=== PATIENT | male | born 2000 ===

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

== ENCOUNTER 2019-05-18 20:38 | Emergency (ER) | payer BC ==
[2019-05-18] MEDS ORDERED: SODIUM CHLORIDE 0.9% 1,000 ML IV STA (21:47)
--- NOTE | 2019-05-18 22:17 | ED ---
General Adult HPI - General Chief complaint: Arrhythmia/Palpitations Stated complaint: Palpitations Time Seen by Provider: 05/18/19 21:00 Source: patient, family Mode of arrival: ambulatory Limitations: no limitations - History of Present Illness Initial comments: Patient presents to the ED with his parents for evaluation. Patient states that he has had rapid and pounding heart palpitations constantly for the past 2 weeks or so. Patient also reports having pain in his left arm for the past 2 weeks or so. Patient denies having any chest pain to me. Patient denies illicit drug use or EtOH abuse. He denies fever or chills, headache, focal neuro deficit, dyspnea, dizziness, syncope, nausea/vomiting/diarrhea, abdominal pain, urinary symptoms, leg or calf swelling or tenderness, or any other symptoms or complaints. - Related Data Home Medications Medication Instructions Recorded Confirmed Aspirin EC [Ecotrin] 325 mg PO DAILY 05/18/19 05/18/19 Allergies Allergy/AdvReac Type Severity Reaction Status Date / Time No Known Allergies Allergy Verified 05/18/19 21:41 Review of Systems ROS Statement: Those systems with pertinent positive or pertinent negative responses have been documented in the HPI. ROS Other: All systems not noted in ROS Statement are negative. Past Medical History Past Medical History: No Reported History Additional Past Medical History / Comment(s): gallstones, kidney stones History of Any Multi-Drug Resistant Organisms: None Reported Past Surgical History: No Surgical Hx Reported Past Anesthesia/Blood Transfusion Reactions: No Reported Reaction Past Psychological History: Anxiety, Depression Smoking Status: Never smoker Past Alcohol Use History: None Reported Past Drug Use History: None Reported - Past Family History Mother Family Medical History: No Reported History General Exam Limitations: no limitations General appearance: alert, in no apparent distress Head exam: Present: atraumatic, normocephalic Eye exam: Present: normal appearance, PERRL, EOMI ENT exam: Present: mucous membranes moist Respiratory exam: Present: normal lung sounds bilaterally. Absent: respiratory distress, wheezes, rales, rhonchi Cardiovascular Exam: Present: normal rhythm, tachycardia, normal heart sounds GI/Abdominal exam: Present: soft. Absent: distended, tenderness Extremities exam: Absent: tenderness, pedal edema, calf tenderness Neurological exam: Present: alert, oriented X3 Psychiatric exam: Present: normal affect, normal mood Skin exam: Present: warm, dry, intact, normal color Course Vital Signs 05/18/19 05/18/19 05/18/19 20:39 21:00 21:30 Temperature 99.3 F Pulse Rate 149 H 142 H 128 H Respiratory 28 H 15 36 H Rate Blood Pressure 119/67 144/112 147/112 O2 Sat by Pulse 99 98 98 Oximetry 05/18/19 05/18/19 05/18/19 22:00 22:30 23:42 Temperature Pulse Rate 109 H 130 H 115 H Respiratory 6 L 6 L 18 Rate Blood Pressure 140/104 154/107 144/84 O2 Sat by Pulse 98 97 100 Oximetry - Reevaluation(s) Reevaluation #1: 05/19/19 00:17 Patient remains in sinus tachycardia on the cardiac surgeon, but his heart rate has now improved to the 110s. Patient remains alert and breathing comfortably. Patient and parents are aware of the patient's test results, and they all agree with the patient going home at this time. Patient was instructed to return to the ED should he develop new or worsening symptoms, and he was instructed to follow up closely with a primary care provider. EKG Findings - EKG Comments: EKG Findings:: Sinus tachycardia, ventricular rate is 142 bpm, normal SC and QRS intervals, normal QT interval, normal axis, no acute ST or T-wave abnormality Medical Decision Making - Medical Decision Making Patient has been in sinus tachycardia on the cardiac surgeon while in the ED. Patient's blood glucose was initially slightly low, but he was fed a meal while in the ED, and his blood glucose has now improved. Patient's chest x-ray is unremarkable. Patient's troponin and d-dimer are both negative. Patient's TSH is within normal limits. Patient's electrolytes are within normal limits. I do not suspect that the patient's palpitations or sinus tachycardia are from an emergent medical condition. Patient and parents were instructed to have the patient follow up closely with a primary care provider for further evaluation should his symptoms continue. They were also instructed to have the patient return to the ED should he develop new or worsening symptoms. They all feel comfortable with this plan. - Lab Data Result diagrams: 05/18/19 22:17 05/18/19 22:17 Lab Results 05/18/19 05/18/19 05/18/19 Range/Units 22:17 22:17 22:17 WBC 13.4 H (4.0-11.0) k/uL RBC 6.08 H (4.30-5.90) m/uL Hgb 16.7 (13.0-17.5) gm/dL Hct 49.8 (39.0-53.0) % MCV 82.0 (80.0-100.0) fL MCH 27.6 (25.0-35.0) pg MCHC 33.6 (31.0-37.0) g/dL RDW 15.4 (11.5-15.5) % Plt Count 370 (150-450) k/uL Neutrophils % 72 % Lymphocytes % 17 % Monocytes % 7 % Eosinophils % 2 % Basophils % 1 % Neutrophils # 9.6 H (1.3-7.7) k/uL Lymphocytes # 2.3 (1.0-4.8) k/uL Monocytes # 0.9 (0-1.0) k/uL Eosinophils # 0.3 (0-0.7) k/uL Basophils # 0.1 (0-0.2) k/uL D-Dimer 0.55 (<0.60) mg/L FEU Sodium 140 (137-145) mmol/L Potassium 4.2 (3.5-5.1) mmol/L Chloride 99 (98-107) mmol/L Carbon Dioxide 21 L (22-30) mmol/L Anion Gap 20 mmol/L BUN 8 L (9-20) mg/dL Creatinine 0.82 (0.66-1.25) mg/dL Est GFR (CKD-EPI)AfAm >90 (>60 ml/min/1.73 sqM) Est GFR (CKD-EPI)NonAf >90 (>60 ml/min/1.73 sqM) Glucose 72 L (74-99) mg/dL POC Glucose (mg/dL) (75-99) mg/dL POC Glu Delivery Merchandiser ID Calcium 10.5 H (8.4-10.2) mg/dL Magnesium 1.8 (1.6-2.3) mg/dL Total Bilirubin 1.1 (0.2-1.3) mg/dL AST 66 H (17-59) U/L ALT 188 H (21-72) U/L Alkaline Phosphatase 97 (38-126) U/L Troponin I (0.000-0.034) ng/mL Total Protein 8.7 H (6.3-8.2) g/dL Albumin 5.1 H (3.5-5.0) g/dL TSH 1.890 (0.465-4.680) mIU/L 05/18/19 05/18/19 05/19/19 Range/Units 22:17 23:56 00:12 WBC (4.0-11.0) k/uL RBC (4.30-5.90) m/uL Hgb (13.0-17.5) gm/dL Hct (39.0-53.0) % MCV (80.0-100.0) fL MCH (25.0-35.0) pg MCHC (31.0-37.0) g/dL RDW (11.5-15.5) % Plt Count (150-450) k/uL Neutrophils % % Lymphocytes % % Monocytes % % Eosinophils % % Basophils % % Neutrophils # (1.3-7.7) k/uL Lymphocytes # (1.0-4.8) k/uL Monocytes # (0-1.0) k/uL Eosinophils # (0-0.7) k/uL Basophils # (0-0.2) k/uL D-Dimer (<0.60) mg/L FEU Sodium (137-145) mmol/L Potassium (3.5-5.1) mmol/L Chloride (98-107) mmol/L Carbon Dioxide (22-30) mmol/L Anion Gap mmol/L BUN (9-20) mg/dL Creatinine (0.66-1.25) mg/dL Est GFR (CKD-EPI)AfAm (>60 ml/min/1.73 sqM) Est GFR (CKD-EPI)NonAf (>60 ml/min/1.73 sqM) Glucose (74-99) mg/dL POC Glucose (mg/dL) 68 L 84 (75-99) mg/dL POC Glu Delivery Merchandiser ID Belkys [place] Calcium (8.4-10.2) mg/dL Magnesium (1.6-2.3) mg/dL Total Bilirubin (0.2-1.3) mg/dL AST (17-59) U/L ALT (21-72) U/L Alkaline Phosphatase (38-126) U/L Troponin I <0.012 (0.000-0.034) ng/mL Total Protein (6.3-8.2) g/dL Albumin (3.5-5.0) g/dL TSH (0.465-4.680) mIU/L - Radiology Data Radiology results: image reviewed (Chest x-ray shows no acute cardiopulmonary disease) Disposition Clinical Impression: Sinus tachycardia, Palpitations Disposition: HOME SELF-CARE Condition: Stable Instructions (If sedation given, give patient instructions): Heart Palpitations (ED) Additional Instructions: Return to the ER if you develop new or worsening pain, a fever, shortness of breath, feeling dizzy or faint, or new or worsening symptoms. Is patient prescribed a controlled substance at d/c from ED?: No Referrals: Iris Mendez MD [REFERRING] - 1-2 days Time of Disposition: 00:26
[2019-05-18 22:35] LABS: Basophils # (A) 0.1 k/uL (0-0.2); Basophils % (A) 1 %; Eosinophils # (A) 0.3 k/uL (0-0.7); Eosinophils % (A) 2 %; HCT 49.8 % (39.0-53.0); HGB 16.7 gm/dL (13.0-17.5); Lymphocytes # (A) 2.3 k/uL (1.0-4.8); Lymphocytes % (A) 17 %; MCH 27.6 pg (25.0-35.0); MCHC 33.6 g/dL (31.0-37.0); Mean Platelet Volume 7.5; Monocytes # (A) 0.9 k/uL (0-1.0); Monocytes % (A) 7 %; Neutrophils # (A) 9.6 k/uL (1.3-7.7); Neutrophils % (A) 72 %; Platelet Count 370 k/uL (150-450); RBC 6.08 m/uL (4.30-5.90); RDW 15.4 % (11.5-15.5); WBC 13.4 k/uL (4.0-11.0)
[2019-05-18 22:45] LABS: ALT 188 U/L (21-72); AST 66 U/L (17-59); African American GFR (CKD) >90 (>60 ml/min/1.73 sqM); Albumin 5.1 g/dL (3.5-5.0); Alkaline Phosphatase 97 U/L (38-126); Anion Gap 20 mmol/L; Blood Urea Nitrogen 8 mg/dL (9-20); Calcium 10.5 mg/dL (8.4-10.2); Carbon Dioxide 21 mmol/L (22-30); Chloride 99 mmol/L (98-107); Glucose 72 mg/dL (74-99); Magnesium 1.8 mg/dL (1.6-2.3); Potassium 4.2 mmol/L (3.5-5.1); Sodium 140 mmol/L (137-145); Total Bilirubin 1.1 mg/dL (0.2-1.3); Total Protein 8.7 g/dL (6.3-8.2)
--- NOTE | 2019-05-18 23:18 | XR ---
INDICATION: Palpitations COMPARISON: None FINDINGS: Frontal and lateral views of the chest are submitted for interpretation. There is no airspace opacity, pleural effusion or pneumothorax. Heart size and pulmonary vascularity are normal. There are no acute osseous findings. IMPRESSION: No acute cardiopulmonary disease.
[2019-05-18 23:43] VITALS: RESP 18
[2019-05-18 23:58] LABS: Glucose,Whole Blood 68 mg/dL (75-99)
[2019-05-19 00:13] LABS: Glucose,Whole Blood 84 mg/dL (75-99)
[2019-05-19 00:34] VITALS: BP 144/94; PULSE 110; TEMP 99.2
== END 2019-05-19 00:35 | disposition home or self-care (01) ==
LOC: EC 20:38
DX: R00.2 Palpitations (principal); R00.0 Tachycardia, unspecified; M79.602 Pain in left arm; Z79.82 Long term (current) use of aspirin
CPT/HCPCS: 36415; 71046; 80053; 83735; 84443; 84484; 85025; 85379; 93005; 96360; 96361; 99285

== ENCOUNTER → 2019-07-12 | Outpatient (CLI) | payer BC ==
--- NOTE | 2019-07-12 10:00 | US ---
EXAMINATION TYPE: US liver DATE OF EXAM: 07/12/2019 COMPARISON: NONE CLINICAL HISTORY: R74.8 abnormal liver enzymes. EXAM MEASUREMENTS: Liver Length: 17.3 cm Gallbladder Wall: .4 cm CBD: .5 cm Right Kidney: 11.7 x 5.1 x 5.3 cm Pancreas: Obscured by bowel gas Liver: There is increased echogenicity of the hepatic parenchyma with diminished visualization of th e portal triads most commonly relating to hepatic steatosis and limiting evaluation for underlying he patic masses. Gallbladder: Multiple stones seen. Contracted gallbladder. Evidence for sonographic Duff's sign: No CBD: wnl Right Kidney: wnl IMPRESSION: 1. Sonographic findings most commonly related to hepatic steatosis. Correlate with liver function rashida t results. 2. Contracted gallbladder containing multiple gallstones. No sonographic evidence of acute cholecysti tis. 3. Obscuration of the pancreas by overlying bowel gas.
== END | disposition home or self-care (01) ==
LOC: RADUSWWP 09:22
PROVIDERS: ATTEND Internal Medicine
DX: K80.11 Calculus of gallbladder with chronic cholecystitis with obstruction (principal); R74.8 Abnormal levels of other serum enzymes
CPT/HCPCS: 76705

== ENCOUNTER 2021-02-28 15:43 | Emergency (ER) | payer BC ==
[2021-02-28 15:57] VITALS: TEMP 98.1
[2021-02-28] MEDS ORDERED: lisinopriL 10 MG TAB PO STA (16:16)
[2021-02-28] MEDS ORDERED: SODIUM CHLORIDE 0.9% 1,000 ML IV ONE (16:23)
--- NOTE | 2021-02-28 16:24 | ED ---
General Adult HPI - General Chief complaint: Recheck/Abnormal Lab/Rx Stated complaint: Hypertension/Dizziness Time Seen by Provider: 02/28/21 16:01 Source: patient, RN notes reviewed, old records reviewed Mode of arrival: ambulatory Limitations: no limitations - History of Present Illness Initial comments: 20-year-old male history of hypertension presents for evaluation of elevated blood pressure. Patient was sent in from urgent care for evaluation of elevated blood pressure. He has been out of his antihypertensive medication for several weeks. He does report some ongoing symptoms of dizziness, intermittent chest discomfort which is been present for approximately one year. He was currently on lisinopril 10 mg. No abdominal pain. No dyspnea. No focal numbness or weakness. No headaches. - Related Data Previous Rx's Medication Instructions Recorded lisinopriL [Zestril] 5 mg PO DAILY #30 tablet 02/28/21 Allergies Allergy/AdvReac Type Severity Reaction Status Date / Time No Known Allergies Allergy Verified 02/28/21 17:20 Review of Systems ROS Statement: Those systems with pertinent positive or pertinent negative responses have been documented in the HPI. ROS Other: All systems not noted in ROS Statement are negative. Past Medical History Past Medical History: No Reported History Additional Past Medical History / Comment(s): gallstones, kidney stones History of Any Multi-Drug Resistant Organisms: None Reported Past Surgical History: No Surgical Hx Reported Past Anesthesia/Blood Transfusion Reactions: No Reported Reaction Past Psychological History: Anxiety, Depression Smoking Status: Never smoker Past Alcohol Use History: Occasional Past Drug Use History: Marijuana - Past Family History Mother Family Medical History: No Reported History General Exam Limitations: no limitations General appearance: alert, in no apparent distress Head exam: Present: atraumatic, normocephalic Eye exam: Present: normal appearance, PERRL, EOMI ENT exam: Present: normal exam Neck exam: Present: normal inspection. Absent: tenderness Respiratory exam: Present: normal lung sounds bilaterally. Absent: respiratory distress, wheezes Cardiovascular Exam: Present: normal rhythm, tachycardia GI/Abdominal exam: Present: soft. Absent: distended, tenderness, guarding, rebound Extremities exam: Present: normal inspection, normal capillary refill. Absent: pedal edema, calf tenderness Neurological exam: Present: alert, oriented X3, CN II-XII intact. Absent: motor sensory deficit Psychiatric exam: Present: normal affect, normal mood Skin exam: Present: warm, dry, intact. Absent: cyanosis, diaphoretic Course Vital Signs 02/28/21 02/28/21 15:53 17:28 Temperature 98.1 F Pulse Rate 109 H 105 H Respiratory 16 18 Rate Blood Pressure 136/89 133/86 O2 Sat by Pulse 100 97 Oximetry EKG Findings - EKG Comments: EKG Findings:: EKG: Normal sinus rhythm, LVH, rate of 99, TN interval 170, QRS duration 90, QTC 428, no ST segment elevation Medical Decision Making - Medical Decision Making 20-year-old male presenting for medication refill. Out of his lisinopril. He was sent from urgent care with some minimal complaints of chest discomfort ongoing for the past one year. He started on his lisinopril emergency department blood pressure does normalize. Workup reveals leukocytosis of uncertain etiology which the patient has had in the past. He will tell his primary care physician about this and follow-up as an outpatient. He has normal electrolytes. Negative d-dimer, negative troponin. Chest x-ray within normal limits. Blood pressure stable, stable vitals in general. He will be prescribed his lisinopril although because his blood pressure is normal low at this time he will be prescribed 5 mg of lisinopril. - Lab Data Result diagrams: 02/28/21 16:59 02/28/21 16:59 Lab Results 02/28/21 02/28/21 02/28/21 Range/Units 16:59 16:59 16:59 WBC 14.7 H (3.8-10.6) k/uL RBC 5.73 (4.30-5.90) m/uL Hgb 16.1 (13.0-17.5) gm/dL Hct 45.9 (39.0-53.0) % MCV 80.1 (80.0-100.0) fL MCH 28.2 (25.0-35.0) pg MCHC 35.1 (31.0-37.0) g/dL RDW 13.2 (11.5-15.5) % Plt Count 342 (150-450) k/uL MPV 7.0 Neutrophils % 80 % Lymphocytes % 13 % Monocytes % 5 % Eosinophils % 2 % Basophils % 0 % Neutrophils # 11.7 H (1.3-7.7) k/uL Lymphocytes # 1.9 (1.0-4.8) k/uL Monocytes # 0.7 (0-1.0) k/uL Eosinophils # 0.2 (0-0.7) k/uL Basophils # 0.1 (0-0.2) k/uL PT 10.8 (9.0-12.0) sec INR 1.0 (<1.2) APTT 28.1 (22.0-30.0) sec D-Dimer (<0.60) mg/L FEU Sodium 141 (137-145) mmol/L Potassium 3.9 (3.5-5.1) mmol/L Chloride 103 (98-107) mmol/L Carbon Dioxide 22 (22-30) mmol/L Anion Gap 16 mmol/L BUN 8 L (9-20) mg/dL Creatinine 0.60 L (0.66-1.25) mg/dL Est GFR (CKD-EPI)AfAm >90 (>60 ml/min/1.73 sqM) Est GFR (CKD-EPI)NonAf >90 (>60 ml/min/1.73 sqM) Glucose 88 (74-99) mg/dL Calcium 10.3 H (8.4-10.2) mg/dL Magnesium 1.7 (1.6-2.3) mg/dL Total Bilirubin 2.3 H (0.2-1.3) mg/dL AST 32 (17-59) U/L ALT 59 H (4-49) U/L Alkaline Phosphatase 109 (38-126) U/L Troponin I (0.000-0.034) ng/mL Total Protein 8.5 H (6.3-8.2) g/dL Albumin 5.2 H (3.5-5.0) g/dL 02/28/21 02/28/21 Range/Units 16:59 17:09 WBC (3.8-10.6) k/uL RBC (4.30-5.90) m/uL Hgb (13.0-17.5) gm/dL Hct (39.0-53.0) % MCV (80.0-100.0) fL MCH (25.0-35.0) pg MCHC (31.0-37.0) g/dL RDW (11.5-15.5) % Plt Count (150-450) k/uL MPV Neutrophils % % Lymphocytes % % Monocytes % % Eosinophils % % Basophils % % Neutrophils # (1.3-7.7) k/uL Lymphocytes # (1.0-4.8) k/uL Monocytes # (0-1.0) k/uL Eosinophils # (0-0.7) k/uL Basophils # (0-0.2) k/uL PT (9.0-12.0) sec INR (<1.2) APTT (22.0-30.0) sec D-Dimer 0.35 (<0.60) mg/L FEU Sodium (137-145) mmol/L Potassium (3.5-5.1) mmol/L Chloride (98-107) mmol/L Carbon Dioxide (22-30) mmol/L Anion Gap mmol/L BUN (9-20) mg/dL Creatinine (0.66-1.25) mg/dL Est GFR (CKD-EPI)AfAm (>60 ml/min/1.73 sqM) Est GFR (CKD-EPI)NonAf (>60 ml/min/1.73 sqM) Glucose (74-99) mg/dL Calcium (8.4-10.2) mg/dL Magnesium (1.6-2.3) mg/dL Total Bilirubin (0.2-1.3) mg/dL AST (17-59) U/L ALT (4-49) U/L Alkaline Phosphatase (38-126) U/L Troponin I <0.012 (0.000-0.034) ng/mL Total Protein (6.3-8.2) g/dL Albumin (3.5-5.0) g/dL Disposition Clinical Impression: Hypertension Disposition: HOME SELF-CARE Condition: Good Instructions (If sedation given, give patient instructions): Hypertension (ED) Additional Instructions: Please also inform your primary care physician of your elevated white blood cell count. Prescriptions: lisinopriL [Zestril] 5 mg PO DAILY #30 tablet Is patient prescribed a controlled substance at d/c from ED?: No Referrals: Alicja Verdin MD [Primary Care Provider] - 1-2 days Time of Disposition: 18:01
[2021-02-28 17:07] LABS: Basophils # (A) 0.1 k/uL (0-0.2); Basophils % (A) 0 %; Eosinophils # (A) 0.2 k/uL (0-0.7); Eosinophils % (A) 2 %; HCT 45.9 % (39.0-53.0); HGB 16.1 gm/dL (13.0-17.5); Lymphocytes # (A) 1.9 k/uL (1.0-4.8); Lymphocytes % (A) 13 %; MCH 28.2 pg (25.0-35.0); MCHC 35.1 g/dL (31.0-37.0); MCV 80.1 fL (80.0-100.0); Monocytes # (A) 0.7 k/uL (0-1.0); Monocytes % (A) 5 %; Neutrophils # (A) 11.7 k/uL (1.3-7.7); Neutrophils % (A) 80 %; Platelet Count 342 k/uL (150-450); RBC 5.73 m/uL (4.30-5.90); RDW 13.2 % (11.5-15.5); WBC 14.7 k/uL (3.8-10.6)
[2021-02-28 17:19] LABS: Partial Thromboplastin Time 28.1 sec (22.0-30.0); Prothrombin Time 10.8 sec (9.0-12.0)
[2021-02-28 17:20] LABS: ALT 59 U/L (4-49); AST 32 U/L (17-59); African American GFR (CKD) >90 (>60 ml/min/1.73 sqM); Albumin 5.2 g/dL (3.5-5.0); Alkaline Phosphatase 109 U/L (38-126); Anion Gap 16 mmol/L; Blood Urea Nitrogen 8 mg/dL (9-20); Calcium 10.3 mg/dL (8.4-10.2); Carbon Dioxide 22 mmol/L (22-30); Chloride 103 mmol/L (98-107); Glucose 88 mg/dL (74-99); Magnesium 1.7 mg/dL (1.6-2.3); Non-African American GFR(CKD) >90 (>60 ml/min/1.73 sqM); Potassium 3.9 mmol/L (3.5-5.1); Sodium 141 mmol/L (137-145); Total Bilirubin 2.3 mg/dL (0.2-1.3); Total Protein 8.5 g/dL (6.3-8.2)
--- NOTE | 2021-02-28 17:25 | XR ---
EXAMINATION TYPE: XR chest 2V DATE OF EXAM: 02/28/2021 COMPARISON: 05/18/2019 HISTORY: Palpitations. Chest pain TECHNIQUE: FINDINGS: Heart and mediastinum are normal. Lungs are clear. Diaphragm is normal. Bony thorax is inta ct. There are chest leads. IMPRESSION: Normal chest.
[2021-02-28 17:29] VITALS: RESP 18
[2021-02-28 18:21] VITALS: BP 127/80; PULSE 110
== END 2021-02-28 18:21 | disposition home or self-care (01) ==
LOC: EC 15:43
DX: I10 Essential (primary) hypertension (principal); Z79.899 Other long term (current) drug therapy
CPT/HCPCS: 36415; 71046; 80053; 83735; 84484; 85025; 85379; 85610; 85730; 93005; 96360; 99284